=== PATIENT | female | born 1985 | race Caucasian/White ===

== ENCOUNTER 2023-10-24 00:38 | Emergency (ER) | payer OTHER ==
[2023-10-24] MEDS: ONDANSETRON 4 MG/2 ML VIAL IVP STA (01:25)
[2023-10-24] MEDS: SODIUM CHLORIDE 0.9% 1,000 ML IV STA (01:29)
[2023-10-24 01:41] LABS: BASOPHILS % (AUTO) 0.3 %; EOSINOPHILS # (AUTO) 0.5 10^3/uL (0.0-0.7); EOSINOPHILS % (AUTO) 3.9 %; HGB - HEMOGLOBIN 15.4 g/dL (12.0-16.0); LYMPHOCYTES # (AUTO) 1.9 10^3/uL (1.5-3.5); MEAN CORPUSCULAR HEMOGLOBIN 27.1 pg (27.0-31.0); MEAN CORPUSCULAR HGB CONC 31.4 g/dL (32.0-36.0); MEAN CORPUSCULAR VOLUME 86.1 fL (81.0-99.0); MEAN PLATELET VOLUME 9.8 fL (7.9-10.8); MONOCYTES # (AUTO) 0.9 10^3/uL (0.0-1.0); NEUTROPHILS % (AUTO) 70.1 %; PLT - PLATELET COUNT 405 10^3/uL (130-450); RED BLOOD COUNT 5.69 10^6/uL (4.20-5.40); RED CELL DISTRIBUTION WIDTH 13.5 % (12.0-15.0); WHITE BLOOD COUNT 11.4 x10^3/uL (4.8-10.8)
[2023-10-24 01:56] LABS: ALBUMIN 4.5 g/dL (3.2-5.5); ALBUMIN/GLOBULIN RATIO 1.7 (1.0-2.2); BILIRUBIN,TOTAL 0.7 mg/dL (0.2-1.0); CALCIUM 8.9 mg/dL (8.5-10.3); POTASSIUM 3.5 mmol/L (3.5-4.5); TOTAL PROTEIN 7.1 g/dL (6.4-8.9)
[2023-10-24] MEDS: FAMOTIDINE 20 MG/2 ML VIAL IVP STA (02:05)
[2023-10-24] MEDS: SIMETHICONE CHEW 80 MG TABLET PO STA (02:06)
[2023-10-24] MEDS: KETOROLAC 15 MG/ML VIAL IVP STA (02:43)
[2023-10-24] MEDS: HYDROmorphone 1 MG/ML CARPUJECT IVP STA (02:43)
[2023-10-24] MEDS: METOCLOPRAMIDE 10 MG/2 ML VIAL IVP STA (02:44)
--- NOTE | 2023-10-24 02:45 | ED Physician Documentation ---
History of Present Illness - Stated complaint Stated Complaint: N/V/D - Chief complaint Chief Complaint: Abd Pain - History obtained from History obtained from: Patient - Additonal information Additional information: 38yF With past medical history of obesity presents with nausea vomiting and diarrhea for the past 3 days. Patient started Ozempic for weight loss 6 weeks ago and had her last dose 3 days ago. Since that time she has had abdominal cramping, nonbloody nonbilious nausea and vomiting and nonbloody diarrhea. She states she is unable to keep anything down including the nausea medicine that she was prescribed at [facility] this week. denies fever, urinary sx, back pain PD PAST MEDICAL HISTORY - Past Medical History Past Medical History: Yes - Past Surgical History Past Surgical History: Yes Ortho: Other /[employer]: section - Present Medications Home Medications: Ambulatory Orders Medication Instructions Recorded Confirmed Ondansetron HCl 4 mg PO Q6HR PRN 10/24/23 10/24/23 Oxycodone HCl/Acetaminophen 1 each PO Q4H PRN #8 tablet 10/24/23 [Percocet 5-325 mg Tablet] Promethazine Supp [Phenergan Supp] 25 mg VT Q8H PRN #7 supp 10/24/23 Semaglutide [Ozempic] 0.5 mg IM 10/24/23 - Allergies Allergies/Adverse Reactions: Allergies Allergy/AdvReac Type Severity Reaction Status Date / Time No Known Drug Allergies Allergy Verified 10/24/23 01:04 - Social History Does the pt smoke?: No Smoking Status: Never smoker Does the pt drink ETOH?: No Does the pt have substance abuse?: No - Immunizations Immunizations are current?: Yes - POLST Patient has POLST: No PD ED PE NORMAL - Vitals Vital signs reviewed: Yes - General General: Alert and oriented X 3, No acute distress, Well developed/nourished - HEENT HEENT: Atraumatic, PERRL, EOMI - Neck Neck: Supple, no meningeal sign - Cardiac Cardiac: RRR - Respiratory Respiratory: No respiratory distress, Clear bilaterally - Abdomen Abdomen: Non tender, Non distended - Back Back: No CVA TTP - Derm Derm: Normal color, Warm and dry Results - Vitals Vitals: Vital Signs - 24 hr 10/24/23 00:45 Temperature 36.5 C Heart Rate 90 Respiratory 20 Rate Blood Pressure 107/76 O2 Saturation 98 Oxygen O2 Source Room air - Labs Labs: Laboratory Tests 10/24/23 10/24/23 01:25 01:25 WBC 11.4 H RBC 5.69 H Hgb 15.4 Hct 49.0 H MCV 86.1 MCH 27.1 MCHC 31.4 L RDW 13.5 Plt Count 405 MPV 9.8 Neut # (Auto) 8.0 H Lymph # (Auto) 1.9 Cottle # (Auto) 0.9 Eos # (Auto) 0.5 Baso # (Auto) 0.0 Absolute Nucleated RBC 0.00 Nucleated RBC % 0.0 Sodium 137 Potassium 3.5 Chloride 105 Carbon Dioxide 21 Anion Gap 11.0 BUN 15 Creatinine 1.0 Estimated GFR (MDRD) 63 L Glucose 136 H Calcium 8.9 Total Bilirubin 0.7 AST 13 ALT 24 Alkaline Phosphatase 56 Total Protein 7.1 Albumin 4.5 Globulin 2.6 Albumin/Globulin Ratio 1.7 Lipase 14 PD Medical Decision Making - ED course ED course: 38-year-old woman presents with nonbloody nonbilious nausea and vomiting and nonbloody diarrhea, improving s/p IVF, zofran, reglan, toradol, dilaudid. abdominal exam was benign and labwork including CBC and abdominal panel was normal advised outpatient follow-up with primary care provider. Symptomatic care discussed and prescriptions were sent to pharmacy. Return precautions given. Departure - Departure Clinical Impression: Vomiting, Abdominal pain, Diarrhea Condition: Good Instructions: Promethazine suppositories Prescriptions: Oxycodone HCl/Acetaminophen [Percocet 5-325 mg Tablet] 1 each PO Q4H PRN #8 tablet PRN Reason: Pain >8 Promethazine Supp [Phenergan Supp] 25 mg VT Q8H PRN #7 supp PRN Reason: Nausea / Vomiting Comments: You were seen in the emergency department for vomiting and diarrhea, likely related to ozempic. Your labwork was normal and you do not have organ damage from dehydration. Prescriptions for nausea and pain medicine sent to [facility]. Please follow-up with your primary care provider and return to the emergency department if you have any new or worsening symptoms or other concerns. Forms: PCP List
[2023-10-24 02:53] LABS: BILIRUBIN,URINE SMALL (NEGATIVE); GLUCOSE, URINE (UA) NEGATIVE (NEGATIVE); KETONES,URINE (UA) 40 mg/dL (NEGATIVE); LEUKOCYTE ESTERASE, URINE NEGATIVE (NEGATIVE); NITRITE,URINE NEGATIVE (NEGATIVE); OCCULT BLOOD,URINE NEGATIVE (NEGATIVE); PROTEIN,URINE TRACE mg/dL (NEGATIVE); UROBILINOGEN,URINE 0.2 (NORMAL) E.U./dL (NORMAL)
[2023-10-24 02:56] LABS: CLARITY,URINE CLEAR (CLEAR); HCG UR QUAL NEGATIVE
[2023-10-24 04:35] VITALS: BP 118/63; O2SAT 97
== END 2023-10-24 04:28 | disposition home or self-care (01) ==
LOC: ED 00:38
DX: R11.2 Nausea with vomiting, unspecified (principal); R19.7 Diarrhea, unspecified; R10.9 Unspecified abdominal pain
CPT/HCPCS: 36415; 80053; 81003; 81025; 83690; 85025; 96374; 96375; 99283; 99285; A9270; J1170; J2765; 81001; 87086